=== PATIENT | female | born 1940 | race Caucasian/White ===

== ENCOUNTER 2020-05-15 08:51 | Emergency (ER) | payer MEDICAID, MEDICARE, OTHER ==
--- NOTE | 2020-05-15 09:12 | ER Document Report ---
ED General - General Chief Complaint: S/S of Possible Stroke Stated Complaint: POSSIBLE STROKE Time Seen by Provider: 05/15/20 08:52 Primary Care Provider: ANIYA PROCTOR III, MD [Primary Care Provider] - Follow up as needed MEHUL FONTANEZ MD [NO LOCAL MD] - Follow up as needed (call today for appt next week) Notes: 79-year-old female history of A. fib on Coumadin presents with left arm weakness. Went to bed 8:00 lives alone felt normal. Woke up at 4 AM with difficulty using her left arm and having to hold onto things. Left arm and leg weakness. Is been there for now for 5 hours. Called EMS. Blood pressure slightly elevated but took home meds. No missed doses of Coumadin. Denies headache nausea vomiting. TRAVEL OUTSIDE OF THE [place] IN LAST 30 DAYS: No - Related Data Allergies/Adverse Reactions: acetaminophen [From Darvocet-N] Allergy (Verified 05/15/20 09:28) codeine Allergy (Verified 05/15/20 09:18) propoxyphene [From Darvocet-N] Allergy (Verified 05/15/20 09:28) Sulfa (Sulfonamide Antibiotics) Allergy (Verified 05/15/20 09:18) zinc Allergy (Verified 05/15/20 09:18) Past Medical History - General Information source: Patient - Social History Smoking Status: Unknown if Ever Smoked Family History: Reviewed & Not Pertinent - Past Medical History Cardiac Medical History: Reports: Hx Atrial Fibrillation - Immunizations Hx Diphtheria, Pertussis, Tetanus Vaccination: Yes Review of Systems - Review of Systems Notes: REVIEW OF SYSTEMS GEN: Denies fever, chills, weight loss ENT: Denies sore throat, nasal discharge, ear pain EYES: Denies blurry vision, eye pain, discharge CV: Denies chest pain, palpitations, edema RESP: Denies cough, shortness of breath, wheezing GI: Denies abdominal pain, nausea, vomiting, diarrhea MSK: Denies joint pain/swelling, edema, SKIN: Denies rash, skin lesions LYMPH: Denies swollen glands/lymph nodes NEURO: See HPI s PSYCH: Denies depression, suicidal or homicidal ideation PHYSICAL EXAMINATION General: No acute distress, well-nourished Head: Atraumatic, normocephalic ENT: Mouth normal, oropharynx moist, no exudates or tonsillar enlargement Eyes: Conjunctiva normal, pupils equal, lids normal Neck: No JVD, supple, no guarding CVS: Normal rate, regular rhythm, no murmurs Resp: No resp distress, equal and normal breath sounds bilaterally GI: Nondistended, soft, no tenderness to palpation, no rebound or guarding Ext: No deformities, no edema, normal range of motion in upper and lower ext Back: No CVA or midline TTP Skin: No rash, warm Lymphatic: No lymphadeopathy noted Neuro: Awake, alert. Face symmetric. GCS 15. The left arm drift and left leg drift against gravity before 10 seconds otherwise strength sensation language cranial nerves are all normal. Physical Exam - Vital signs Vitals: Temp Pulse Ox 97.9 F 99 05/15/20 09:00 05/15/20 09:00 Course - Re-evaluation Re-evalutation: 05/15/20 09:51 Patient presents with acute neurologic deficit out of the window for IV TPA CT shows calcified and angioma vasogenic edema. Worse than prior but not terrible. No shift. Neuro status after CT is normal. Discussed with daughter as well. No seizure activity. Likely represents swelling from meningioma that is acute on chronic rather than acute stroke. INR is approximately 1.5. Discussed with neurosurgery Doug Croft at [facility] as well as Dr. Lr from neurology. They both agree with Clinton Longoria here and as outpatient and follow-up with neurosurgery in a week. She is independent, and agrees that she does not really want to be in the hospital anyway. We will discharge and she will follow-up with neurosurgery. I do not think she has a concomitant acute stroke that would require transfer and work-up. I have discussed with the patient there likely diagnosis, aftercare plan, follow-up plans and my usual and customary return precautions. They verbalized understanding of this. - Vital Signs Vital signs: Temp Pulse Resp BP Pulse Ox 97.9 F 83 18 183/98 H 98 05/15/20 09:00 05/15/20 09:01 05/15/20 09:01 05/15/20 09:01 05/15/20 09:01 - Laboratory Result Diagrams: 05/15/20 09:02 05/15/20 09:02 Laboratory results interpreted by me: 05/15/20 05/15/20 05/15/20 09:02 09:02 09:02 RDW 14.4 H PT 17.6 H Sodium 135.4 L Chloride 97 L BUN 22 H Glucose 204 H Critical Care Note - Critical Care Note Total time excluding time spent on procedures (mins): 34 Comments: Acute neurologic deficit out of the window for IV TPA. Stroke versus seizure versus bleed Taken straight to CT CT read by me at 9:10 AM shows a large right-sided parafalcine meningioma with surrounding brain edema versus ischemia No herniation We will discuss with radiology, check labs and INR. Discharge - Discharge Clinical Impression: Meningioma Condition: Good Disposition: HOME, SELF-CARE Additional Instructions: Your weakness is likely due to some swelling around a benign tumor you have in your skull. This tumor has been present at least since 2013 but probably before that. I am going to treat to be seizure medication and anti-swelling medication called Decadron. Please take exactly as instructed. Have spoken with neurosurgery at [facility], Dr. Mehul Izquierdo who will see you in the office in the next few days. Your INR for your Coumadin is a little bit low so with Dr. terry about adjusting her medication dosage. Prescriptions: Dexamethasone [Decadron 4 Mg Tablet] 4 mg PO BID #8 tablet Levetiracetam [Keppra 500 mg Tablet] 500 mg PO Q12 #60 tablet Referrals: ANIYA PROCTOR III, MD [Primary Care Provider] - Follow up as needed MEHUL FONTANEZ MD [NO LOCAL MD] - Follow up as needed (call today for appt next week)
--- NOTE | 2020-05-15 09:13 | RADIOLOGY REPORT (SQ) ---
EXAM DESCRIPTION: CT HEAD WITHOUT IMAGES COMPLETED DATE/TIME: 05/15/2020 9:01 am REASON FOR STUDY: l arm wklaine COMPARISON: 08/26/2014 TECHNIQUE: Axial images acquired through the brain without intravenous contrast. Images reviewed wi th bone, brain and subdural windows. Additional sagittal and coronal reconstructions were generated. Images stored on PACS. All CT scanners at this facility use dose modulation, iterative reconstruction, and/or weight based d osing when appropriate to reduce radiation dose to as low as reasonably achievable (ALARA). [facility]: Dose Right [facility]: CareDose [facility]: Dose Right [facility]: Teradose 4D [facility]: Smart Dynamic Signal RADIATION DOSE: CT Rad equipment meets quality standard of care and radiation dose reduction techniq ues were employed. CTDIvol: 53.2 mGy. DLP: 964 mGy-cm.mGy. LIMITATIONS: None. FINDINGS: VENTRICLES: Prominent. CEREBRUM: Persistent calcified mass in the right vertex with surrounding vasogenic edema. There is b een very little change from 2013. This again is most consistent with calcified meningioma. There ar e areas of decreased attenuation in the periventricular white matter and subcortical regions bilatera lly. Small infarcts are present the basal ganglia. No definite acute findings. CEREBELLUM: No masses. No hemorrhage. No alteration of density. No evidence for acute infarction. EXTRAAXIAL SPACES: Age-related involutional change. No fluid collections. No masses. ORBITS AND GLOBE: No intra- or extraconal masses. Normal contour of globe without masses. CALVARIUM: No fracture. PARANASAL SINUSES: No fluid or mucosal thickening. SOFT TISSUES: No mass or hematoma. OTHER: No other significant finding. IMPRESSION: 1. Generalize atrophy and small-vessel ischemic changes. No definite acute process. 2. Grossly stable calcified mass in the right vertex with surrounding vasogenic edema. This measure s approximately 2.4 x 1.8 cm in greatest dimensions. EVIDENCE OF ACUTE STROKE: NO. TECHNICAL DOCUMENTATION: JOB ID: [id number] Quality ID # [id number]: Final reports with documentation of one or more dose reduction techniques (e.g., Au tomated exposure control, adjustment of the mA and/or kV according to patient size, use of iterative reconstruction technique) 2010 [employer]- All Rights Reserved Reading location - IP/workstation name: [email or web address]
[2020-05-15 09:17] LABS: ABSOLUTE MONOCYTES (AUTO) 0.6 10^3/uL (0.1-1.4); ABSOLUTE NEUT (AUTO) 5.8 10^3/uL (1.7-8.2); BASOPHILS % (AUTO) 0.5 % (0-2); EOSINOPHILS % (AUTO) 0.1 % (0-6); HEMATOCRIT 40.6 % (36.0-47.0); HEMOGLOBIN 14.3 g/dL (12.0-15.5); LYMPHOCYTES % (AUTO) 23.6 % (13-45); MEAN CORPUSCULAR HEMOGLOBIN 32.6 pg (27.0-33.4); MEAN CORPUSCULAR HGB CONC 35.2 g/dL (32.0-36.0); MEAN CORPUSCULAR VOLUME 93 fl (80-97); MONOCYTES % (AUTO) 6.9 % (3-13); PLATELET COUNT 287 10^3/uL (150-450); RED BLOOD COUNT 4.38 10^6/uL (3.72-5.28); RED CELL DISTRIBUTION WIDTH 14.4 % (11.5-14.0); SEGMENTED NEUTROPHILS % (AUTO) 68.9 % (42-78); TOTAL CELLS COUNTED % (AUTO) 100 %; WHITE BLOOD COUNT 8.4 10^3/uL (4.0-10.5)
[2020-05-15] MEDS ORDERED: LEVETIRACETAM 1000 MG/NACL-ISO 1,000 MG/100 ML RTUPB IV ONE (09:21)
[2020-05-15] MEDS ORDERED: DEXAMETHASONE SOD PHOS INJ 10 MG/1 ML VIAL IV ONE (09:21)
[2020-05-15 09:23] LABS: INTERNATIONAL RATION (INR) 1.43
[2020-05-15 09:24] LABS: PARTIAL THROMBOPLASTIN TIME 31.9 SEC (23.5-35.8)
[2020-05-15 09:30] LABS: PROTHROMBIN TIME 17.6 SEC (11.4-15.4)
[2020-05-15 09:38] LABS: ALBUMIN 4.4 g/dL (3.5-5.0); ALKALINE PHOSPHATASE 121 U/L (38-126); ANION GAP 13 (5-19); ASPARTATE AMINO TRANSFERASE 24 U/L (14-36); BILIRUBIN,DIRECT 0.4 mg/dL (0.0-0.4); BILIRUBIN,TOTAL 0.9 mg/dL (0.2-1.3); BLOOD UREA NITROGEN 22 mg/dL (7-20); CALCIUM 9.9 mg/dL (8.4-10.2); CARBON DIOXIDE 25 mmol/L (22-30); CHLORIDE 97 mmol/L (98-107); CREATINE KINASE 53 U/L (30-135); GLUCOSE 204 mg/dL (75-110); POTASSIUM 4.4 mmol/L (3.6-5.0); TOTAL PROTEIN 7.2 g/dL (6.3-8.2)
[2020-05-15 09:49] LABS: CREATINE KINASE MB 1.33 ng/mL (<4.55)
[2020-05-15 09:52] LABS: TROPONIN I < 0.012 ng/mL
[2020-05-15 10:16] VITALS: BP 157/88
--- NOTE | 2020-05-15 12:48 | EKG REPORT ---
SEVERITY:- ABNORMAL ECG - ATRIAL FIBRILLATION, V-RATE 71-113 LOW VOLTAGE IN FRONTAL LEADS BORDERLINE T ABNORMALITIES, DIFFUSE LEADS : Confirmed by: Sylvain Blancas MD 15-May-2020 12:47:40
== END 2020-05-15 10:15 | disposition home or self-care (01) ==
LOC: ER 08:51
DX: D32.9 Benign neoplasm of meninges, unspecified (principal); M62.81 Muscle weakness (generalized); I48.91 Unspecified atrial fibrillation; Z79.01 Long term (current) use of anticoagulants; Z88.8 Allergy status to other drugs, medicaments and biological substances; Z88.2 Allergy status to sulfonamides
CPT/HCPCS: 93005; 99285; 96375; 96365; 36415; 82553; 82550; 85025; 85610; 85730; 80053; 84484; 70450; 93010; J1100; J1953